=== PATIENT | male | born 1975 | race Caucasian/White ===

== ENCOUNTER 2020-07-15 23:52 | Emergency (ER) | payer SELFPAY ==
[~2020-07-15] VITALS: Ht 167.6 cm; Wt 85.7 kg
[2020-07-16 00:08] VITALS: BP 129/71; Ht 167.6 cm; Wt 85.7 kg
== END 2020-07-16 00:32 | disposition home or self-care (01) ==
LOC: ED 23:52
DX: L03.116 Cellulitis of left lower limb (principal); Z48.00 Encounter for change or removal of nonsurgical wound dressing